=== PATIENT | male | born 1945 | race Caucasian/White ===

== ENCOUNTER 2021-06-09 05:33 | Inpatient (IN) ==
[2021-06-04 11:03] LABS: Basophils % 0.4 % (0.0-0.8); Eosinophils # 0.2 10*3/uL (0.0-0.87); Eosinophils % 2.2 % (0.00-10.9); Hematocrit 45.5 VOL% (42.0-52.0); Hemoglobin 15.1 GM/DL (14.0-18.0); Immature Granulocytes % 0.4 %; Immature Granulocytes Absolute 0.03 #; Lymphocytes # 1.8 10*3/uL (1.4-4.0); Mean Corpuscular HGB Conc 33.2 GM/DL (32-36); Mean Corpuscular Volume 92.7 FL (87-102); Mean Platelet Volume 10.7 FL (9.6-12.0); Monocytes % 6.8 % (1.7-12.7); Neutrophils % 67.2 % (38.7-73.9); Platelet Count 142 T/CUMM (130-400); Red Blood Count 4.91 MC/CUMM (3.8-5.5); Red Cell Distribution Width 13.2 % (9.3-17.3); White Blood Count 7.8 T/CUMM (4-12)
[2021-06-04 11:08] LABS: Calcium 9.2 MG/DL (8.5-10.1); Osmolality,Calculated 284.3 MOS/KG (273-304); Potassium 5.4 MMOL/L (3.5-5.1)
[2021-06-09] MEDS ORDERED: cefTRIAXone 1,000 MG in SODIUM CHLORIDE 0.9% 100 ML IV ONE (06:00)
[2021-06-09] MEDS ORDERED: propofoL 200 MG/20 ML VIAL IV ONE ×2 (06:16→10:11)
[2021-06-09] MEDS ORDERED: ROCURONIUM 50 MG/5 ML VIAL IV ONE ×2 (06:16→08:54)
[2021-06-09] MEDS ORDERED: fentaNYL 100 MCG/2 ML VIAL ONE ×2 (06:16→08:21)
[2021-06-09] MEDS ORDERED: LIDOCAINE 2% 5 ML VIAL ONE (06:16)
[2021-06-09] MEDS ORDERED: SUCCINYLCHOLINE 200 MG/10 ML VIAL ONE (06:16)
[2021-06-09] MEDS ORDERED: MIDAZOLAM 2 MG/2 ML VIAL ONE (06:17)
[2021-06-09] MEDS: LACTATED RINGERS 1,000 ML IV SCH ×2 (06:25→11:42)
[2021-06-09] MEDS ORDERED: ROPIVACAINE 0.5% 30 ML VIAL ONE (06:32)
[2021-06-09] MEDS ORDERED: LIDOCAINE 1% 5 ML VIAL ONE (06:32)
[2021-06-09] MEDS ORDERED: PHENYLEPHRINE 10 MG/1 ML VIAL IV ONE (06:36)
[2021-06-09 07:04] LABS: Calcium 8.6 MG/DL (8.5-10.1); Osmolality,Calculated 284.3 MOS/KG (273-304); Potassium 4.4 MMOL/L (3.5-5.1)
[2021-06-09] MEDS ORDERED: ALBUTEROL/IPRATROPIUM 3 ML NEB RESP TX ONE ×2 (07:24→07:31)
[2021-06-09] MEDS ORDERED: SEVOFLURANE 1 UNIT/15 MINUTE INH ONE ×9 (08:54→11:26)
[2021-06-09] MEDS ORDERED: SODIUM CHLORIDE 0.9% 100 ML IV ONE (08:55)
[2021-06-09] MEDS ORDERED: SODIUM CHLORIDE 0.9% 1,000 ML IV ONE (08:55)
[2021-06-09] MEDS ORDERED: ACETAMINOPHEN INJ 1,000 MG/100 ML VIAL IV ONE (09:27)
[2021-06-09] MEDS ORDERED: GLYCOPYRROLATE 0.4 MG/2 ML VIAL ONE (10:08)
[2021-06-09] MEDS ORDERED: ONDANSETRON 4 MG/2 ML VIAL ONE (10:08)
[2021-06-09] MEDS ORDERED: NEOSTIGMINE 10 MG/10 ML VIAL ONE (10:08)
[2021-06-09] MEDS ORDERED: ONDANSETRON 4 MG/2 ML VIAL IV PRN ×2 (10:20→11:43)
[2021-06-09] MEDS ORDERED: ACETAMINOPHEN 325 MG TABLET PO PRN (10:20)
[2021-06-09] MEDS ORDERED: PROMETHAZINE 25 MG/1 ML VIAL IM PRN (10:20)
[2021-06-09] MEDS ORDERED: ALBUTEROL SULFATE INH PRN (10:26)
[2021-06-09] MEDS ORDERED: [UNRECOGNIZED DRUG - OTHER] INH PRN (10:26)
[2021-06-09] MEDS ORDERED: oxyCODONE/ACETAMINOPHEN 5-325 MG TABLET PO PRN (10:27)
[2021-06-09] MEDS ORDERED: ALBUTEROL/IPRATROPIUM 3 ML NEB RESP TX PRN (10:38)
[2021-06-09 11:05] LABS: Bilirubin,Urine Negative (Negative); Blood, Urine Small mg/dL (Negative); Glucose,Urine (UA) Negative (Negative); Ketones,Urine Negative (Negative); Mucus,Urine Occasional /LPF (Occasional); Nitrite,Urine Negative (Negative); Protein,Urine 30 MG/DL; RBC,Urine 2 /HPF (0-4); Squamous Epithelial Cell,Urine Occasional /HPF (0-10); Urine Appearance CLEAR (Clear); Urine Color Yellow (Yellow); Urine Specific Gravity 1.015 (1.001-1.035); Urine Urobilinogen < 2.0 EU/DL (0.2-1.0)
[2021-06-09] MEDS: HYDROmorphone 2 MG/1 ML VIAL IV PRN ×4 (11:25→21:39)
[2021-06-09] MEDS: cefTRIAXone 1,000 MG in SODIUM CHLORIDE 0.9% 100 ML IV SCH (12:39)
[2021-06-09 12:59] LABS: Basophils % 0.2 % (0.0-0.8); Eosinophils % 0.2 % (0.00-10.9); Hematocrit 41.4 VOL% (42.0-52.0); Hemoglobin 13.7 GM/DL (14.0-18.0); Immature Granulocytes % 0.6 %; Immature Granulocytes Absolute 0.07 #; Lymphocytes # 1.1 10*3/uL (1.4-4.0); Lymphocytes % 8.6 % (21.2-54.2); Mean Corpuscular HGB Conc 33.1 GM/DL (32-36); Mean Corpuscular Volume 93.7 FL (87-102); Mean Platelet Volume 9.7 FL (9.6-12.0); Monocytes % 5.2 % (1.7-12.7); Neutrophils % 85.2 % (38.7-73.9); Platelet Count 125 T/CUMM (130-400); Red Blood Count 4.42 MC/CUMM (3.8-5.5); Red Cell Distribution Width 13.4 % (9.3-17.3); White Blood Count 12.2 T/CUMM (4-12)
[2021-06-09] MEDS: SODIUM CHLORIDE 0.9% 1,000 ML IV SCH ×2 (12:59→22:37)
[2021-06-09] MEDS: ACETAMINOPHEN 325 MG TABLET PO SCH ×3 (12:59→22:28)
[2021-06-09 13:15] LABS: Calcium 8.1 MG/DL (8.5-10.1); Potassium 4.7 MMOL/L (3.5-5.1)
[2021-06-09] MEDS ORDERED: NICOTINE 14 MG/24 HR PATCH TRANSDERM PRN (14:22)
[2021-06-09] MEDS: GABAPENTIN 300 MG CAPSULE PO SCH ×2 (16:21→21:38)
[2021-06-09] MEDS: ALVIMOPAN 12 MG CAPSULE PO SCH (20:42)
[2021-06-09] MEDS: ROSUVASTATIN 10 MG TABLET PO SCH (20:42)
[2021-06-09] MEDS: DOCUSATE SODIUM 100 MG CAPSULE PO SCH (20:42)
[2021-06-10] MEDS: ACETAMINOPHEN 325 MG TABLET PO SCH ×4 (05:10→23:27)
[2021-06-10 05:43] LABS: Basophils % 0.4 % (0.0-0.8); Eosinophils # 0.1 10*3/uL (0.0-0.87); Eosinophils % 1.5 % (0.00-10.9); Hematocrit 43.5 VOL% (42.0-52.0); Hemoglobin 13.6 GM/DL (14.0-18.0); Immature Granulocytes % 0.5 %; Immature Granulocytes Absolute 0.04 #; Lymphocytes # 1.4 10*3/uL (1.4-4.0); Lymphocytes % 18.5 % (21.2-54.2); Mean Corpuscular HGB Conc 31.3 GM/DL (32-36); Mean Corpuscular Volume 96.2 FL (87-102); Monocytes % 8.9 % (1.7-12.7); Neutrophils % 70.2 % (38.7-73.9); Platelet Count 115 T/CUMM (130-400); Red Blood Count 4.52 MC/CUMM (3.8-5.5); Red Cell Distribution Width 13.7 % (9.3-17.3); White Blood Count 7.4 T/CUMM (4-12)
[2021-06-10 06:01] LABS: Osmolality,Calculated 285.1 MOS/KG (273-304); Potassium 4.8 MMOL/L (3.5-5.1)
[2021-06-10] MEDS: DOCUSATE SODIUM 100 MG CAPSULE PO SCH ×2 (10:00→23:28)
[2021-06-10] MEDS: GABAPENTIN 300 MG CAPSULE PO SCH ×3 (10:01→23:28)
[2021-06-10] MEDS: PANTOPRAZOLE 40 MG TABLET PO SCH (10:01)
[2021-06-10] MEDS: amLODIPine 5 MG TABLET PO SCH (10:01)
[2021-06-10] MEDS: TAMSULOSIN 0.4 MG CAPSULE PO SCH (10:01)
[2021-06-10] MEDS: ALVIMOPAN 12 MG CAPSULE PO SCH ×2 (10:02→23:28)
[2021-06-10] MEDS: cefTRIAXone 1,000 MG in SODIUM CHLORIDE 0.9% 100 ML IV SCH (12:52)
[2021-06-10] MEDS: ALBUTEROL/IPRATROPIUM 3 ML NEB RESP TX SCH ×2 (14:30→19:48)
[2021-06-10] MEDS: ROSUVASTATIN 10 MG TABLET PO SCH (23:29)
[2021-06-11] MEDS: ALBUTEROL/IPRATROPIUM 3 ML NEB RESP TX SCH ×3 (00:53→13:07)
[2021-06-11 05:22] LABS: Basophils % 0.3 % (0.0-0.8); Eosinophils # 0.2 10*3/uL (0.0-0.87); Eosinophils % 2.4 % (0.00-10.9); Hemoglobin 12.6 GM/DL (14.0-18.0); Immature Granulocytes % 0.5 %; Immature Granulocytes Absolute 0.03 #; Lymphocytes # 1.4 10*3/uL (1.4-4.0); Lymphocytes % 21.2 % (21.2-54.2); Mean Corpuscular HGB Conc 32.3 GM/DL (32-36); Mean Corpuscular Volume 94.2 FL (87-102); Mean Platelet Volume 10.4 FL (9.6-12.0); Monocytes % 9.3 % (1.7-12.7); Neutrophils % 66.3 % (38.7-73.9); Platelet Count 119 T/CUMM (130-400); Red Blood Count 4.14 MC/CUMM (3.8-5.5); Red Cell Distribution Width 13.4 % (9.3-17.3); White Blood Count 6.7 T/CUMM (4-12)
[2021-06-11 05:34] LABS: Calcium 8.3 MG/DL (8.5-10.1); Osmolality,Calculated 281.4 MOS/KG (273-304); Potassium 4.3 MMOL/L (3.5-5.1)
[2021-06-11] MEDS: ACETAMINOPHEN 325 MG TABLET PO SCH ×2 (05:39→09:54)
[2021-06-11 05:47] LABS: Hypochromasia Slight; Microcytosis Slight; Platelet Estimate Decreased
[2021-06-11] MEDS ORDERED: MAGNESIUM SULF RIDER 2 GM/50 ML PREMIX IV PRN (06:14)
[2021-06-11] MEDS ORDERED: MAGNESIUM SULF RIDER 4 GM/100 ML PREMIX IV PRN (06:14)
[2021-06-11] MEDS: GABAPENTIN 300 MG CAPSULE PO SCH ×2 (09:35→15:10)
[2021-06-11] MEDS: PANTOPRAZOLE 40 MG TABLET PO SCH (09:36)
[2021-06-11] MEDS: TAMSULOSIN 0.4 MG CAPSULE PO SCH (09:36)
[2021-06-11] MEDS: DOCUSATE SODIUM 100 MG CAPSULE PO SCH (09:36)
[2021-06-11] MEDS: ALVIMOPAN 12 MG CAPSULE PO SCH (09:37)
[2021-06-11] MEDS: cefTRIAXone 1,000 MG in SODIUM CHLORIDE 0.9% 100 ML IV SCH (09:40)
[2021-06-11] MEDS: amLODIPine 5 MG TABLET PO SCH (09:40)
[2021-06-11 10:46] LABS: Calcium 8.4 MG/DL (8.5-10.1); Osmolality,Calculated 286.1 MOS/KG (273-304); Potassium 4.4 MMOL/L (3.5-5.1)
[2021-06-11 17:57] VITALS: BP 160/75
== END 2021-06-11 18:00 | disposition home or self-care (01) | DRG 657 ==
LOC: N.OR 05:33 → N.SDSINP 05:35 → N.5E 12:37
PROVIDERS: ADMIT Surgery; ATTEND Surgery